=== PATIENT | male | born 1965 | race Caucasian/White ===

== ENCOUNTER 2017-11-10 01:06 | Emergency (ER) | payer OTHER ==
[2017-11-10] MEDS ORDERED: LISI-374 PO (01:14)
[2017-11-10] MEDS ORDERED: ASPI-1471 PO (01:15)
[2017-11-10] MEDS ORDERED: ATOR20TA22 PO (01:15)
[2017-11-10] MEDS ORDERED: OMEP-218 PO (01:15)
--- NOTE | 2017-11-10 01:27 | ER Report ---
History and Physical Time Seen By MD: 01:27 Hx. of Stated Complaint: BLOODY NOSE ON LEFT NOSTRIL HPI/ROS CHIEF COMPLAINT: nosebleed HISTORY OF PRESENT ILLNESS: This is a 52 year old male. He is having epistaxis today. this is the 4th episode today. left nasal passage. has had prior problems like this. He is visiting town from [place] and will be returning there in a few days. He has high blood pressure and has not been taking his lisinopril regularly, but did take it yesterday. No other bleeding or bruising. Does not want packing as he has had that in the past and is very uncomfortable. Hoping we can do some cautery. Allergies: Coded Allergies: No Known Drug Allergies (Unverified , 11/10/17) Home Meds Reported Medications Omeprazole Magnesium (PRILOSEC OTC) 20 Mg Tablet., 1 TAB PO QDAY, TAB 11/10/17 Aspirin (ASPIR 81) 81 Mg Tablet.dr, 81 MG PO QDAY, TAB 11/10/17 Atorvastatin Calcium (LIPITOR) 20 Mg Tablet, 1 TAB PO QDAY, TAB 11/10/17 Lisinopril (LISINOPRIL) 40 Mg Tablet, 40 MG PO QDAY, TAB 11/10/17 Reviewed Nurses Notes: Yes Hx Substance Use Disorder: No Hx Alcohol Use: No Constitutional Vital Sign - Last 24 Hours 11/10/17 11/10/17 11/10/17 11/10/17 01:11 01:12 01:30 02:00 Temp 97.5 Pulse 106 Resp 16 B/P (MAP) 125/101 (109) 125/101 105/77 (86) 101/72 (82) Pulse Ox 93 O2 Delivery Room Air 11/10/17 11/10/17 11/10/17 11/10/17 02:06 02:11 02:26 02:41 Pulse 89 87 88 91 Pulse Ox 93 91 91 91 Physical Exam General Appearance: Alert, no distress. Eyes: Pupils equal and round no pallor or injection. ENT: Mucous membranes are moist. Oral mucosa is normal in appearance. Posterior oropharynx with blood draining post-nasal. Nasal mucosa with bleeding mid-septum on the left. Skin: Warm and dry, no rashes. DIFFERENTIAL DIAGNOSIS: After history and physical exam differential diagnosis was considered for nosebleed, initial blood pressure elevated but repeat blood pressures look good. Appears to be bleeding from the left nasal passage, mid septum. Medical Decision Making Data Points Result Diagram: 11/10/17 0208 11/10/17 0208 Laboratory Hematology Test 11/10/17 02:08 Red Blood Count 4.58 M/uL (4.00-5.60) Mean Corpuscular Volume 82.9 fL (80.0-96.0) Mean Corpuscular Hemoglobin 29.0 pg (26.0-33.0) Mean Corpuscular Hemoglobin Concent 35.0 g/dL (32.0-36.0) Red Cell Distribution Width 14.5 % (11.5-14.5) Mean Platelet Volume 7.2 fL (7.2-11.1) Neutrophils (%) (Auto) 64.3 % (39.4-72.5) Lymphocytes (%) (Auto) 27.2 % (17.6-49.6) Monocytes (%) (Auto) 6.4 % (4.1-12.4) Eosinophils (%) (Auto) 1.2 % (0.4-6.7) Basophils (%) (Auto) 0.9 % (0.3-1.4) Nucleated RBC Relative Count (auto) 0.0 /100WBC Neutrophils # (Auto) 5.5 K/uL (2.0-7.4) Lymphocytes # (Auto) 2.3 K/uL (1.3-3.6) Monocytes # (Auto) 0.5 K/uL (0.3-1.0) Eosinophils # (Auto) 0.1 K/uL (0.0-0.5) Basophils # (Auto) 0.1 K/uL (0.0-0.1) Nucleated RBC Absolute Count (auto) 0.00 K/uL Prothrombin Time 13.2 seconds (12.0-14.4) Prothromb Time International Ratio 1.00 Activated Partial Thromboplast Time 22 seconds (23-35) Sodium Level 139 mmol/L (137-145) Potassium Level 3.6 mmol/L (3.5-5.0) Chloride Level 103 mmol/L (98-107) Carbon Dioxide Level 27 mmol/L (22-30) Blood Urea Nitrogen 25 mg/dl (9-21) Creatinine 1.20 mg/dl (0.66-1.25) Glomerular Filtration Rate Calc > 60.0 Random Glucose 106 mg/dl (75-110) Calcium Level 9.6 mg/dl (8.4-10.2) Total Bilirubin 0.3 mg/dl (0.2-1.3) Aspartate Amino Transf (AST/SGOT) 27 U/L (0-35) Alanine Aminotransferase (ALT/SGPT) 26 U/L (0-56) Alkaline Phosphatase 52 U/L (0-126) Total Protein 7.0 g/dl (6.3-8.2) Albumin 4.2 g/dl (3.5-5.0) Chemistry Test 11/10/17 02:08 White Blood Count 8.5 k/uL (4.5-11.0) Red Blood Count 4.58 M/uL (4.00-5.60) Hemoglobin 13.3 g/dL (14.0-18.0) Hematocrit 38.0 % (42.0-52.0) Mean Corpuscular Volume 82.9 fL (80.0-96.0) Mean Corpuscular Hemoglobin 29.0 pg (26.0-33.0) Mean Corpuscular Hemoglobin Concent 35.0 g/dL (32.0-36.0) Red Cell Distribution Width 14.5 % (11.5-14.5) Platelet Count 305 K/uL (150-450) Mean Platelet Volume 7.2 fL (7.2-11.1) Neutrophils (%) (Auto) 64.3 % (39.4-72.5) Lymphocytes (%) (Auto) 27.2 % (17.6-49.6) Monocytes (%) (Auto) 6.4 % (4.1-12.4) Eosinophils (%) (Auto) 1.2 % (0.4-6.7) Basophils (%) (Auto) 0.9 % (0.3-1.4) Nucleated RBC Relative Count (auto) 0.0 /100WBC Neutrophils # (Auto) 5.5 K/uL (2.0-7.4) Lymphocytes # (Auto) 2.3 K/uL (1.3-3.6) Monocytes # (Auto) 0.5 K/uL (0.3-1.0) Eosinophils # (Auto) 0.1 K/uL (0.0-0.5) Basophils # (Auto) 0.1 K/uL (0.0-0.1) Nucleated RBC Absolute Count (auto) 0.00 K/uL Prothrombin Time 13.2 seconds (12.0-14.4) Prothromb Time International Ratio 1.00 Activated Partial Thromboplast Time 22 seconds (23-35) Glomerular Filtration Rate Calc > 60.0 Calcium Level 9.6 mg/dl (8.4-10.2) Total Bilirubin 0.3 mg/dl (0.2-1.3) Aspartate Amino Transf (AST/SGOT) 27 U/L (0-35) Alanine Aminotransferase (ALT/SGPT) 26 U/L (0-56) Alkaline Phosphatase 52 U/L (0-126) Total Protein 7.0 g/dl (6.3-8.2) Albumin 4.2 g/dl (3.5-5.0) Coagulation Test 11/10/17 02:08 Prothrombin Time 13.2 seconds Prothromb Time International Ratio 1.00 Activated Partial Thromboplast Time 22 seconds ED Course/Re-evaluation ED Course Procedure: Epistaxis control. Initially treated with compression with a nasal clamp. The patient had continued bleeding. We then used Neosynephrine nasal spray to try and acheive some vasoconstriction to slow or stop the bleeding. We also used some atomized 1% lidocaine with epinephrine, 0.5cc in the nasal passage. Also used 500 mg of TXA on cotton in the nose. The nose was re-clamped and we waited to re-evaluate. Re- evaluation revealed slowing of the bleeding. The was identified and was on the anterior nasal septum. Cautery was attempted with silver nitrate. Following the procedure the patient was re-examined and the bleeding was well controlled. The patient tolerated the procedure well. The procedure was performed by myself. Decision to Disposition Date: Nov 10, 2017 Decision to Disposition Time: 03:33 Depart Departure Latest Vital Signs Vital Signs Date Time Temp Pulse Resp B/P (MAP) Pulse Ox O2 Delivery O2 Flow Rate FiO2 11/10/17 02:41 91 91 11/10/17 02:00 101/72 (82) 11/10/17 01:12 97.5 16 Room Air Impression: Primary Impression: Nosebleed Condition: Improved Disposition: HOME OR SELF-CARE Patient Instructions: Nosebleed (ED) Additional Instructions: Avoid manipulation of the nose for the next 24-48 hours (rubbing, blowing, picking, etc.) Hold direct pressure if bleeding reoccurs and check into an urgent care or ER if no stopping. Follow-up with your doctor upon returning home. Make sure to take you blood pressure medicine daily as well. To prevent the nose from drying out from the dry air here, you can use a humidifier. You can also use some vaseline or antibiotic ointment in the nose to cover the inner surface. YUN OLIVARES MD Nov 10, 2017 01:27
[2017-11-10] MEDS ORDERED: TRANEXAMIC AC 1000 MG/10ML SDV ONE (01:35)
[2017-11-10] MEDS ORDERED: ENT KIT ONE (01:35)
[2017-11-10 02:00] VITALS: BP 101/72
[2017-11-10 02:19] LABS: PLATELET COUNT, AUTOMATED 305 K/uL (150-450)
[2017-11-10] MEDS ORDERED: PHENYLEPHRINE 0.5% 15 ML BTL ONE (04:23)
== END 2017-11-10 04:04 | disposition home or self-care (01) ==
LOC: ER 01:43
DX: R04.0 Epistaxis (principal)
CPT/HCPCS: 30903; 82040; 82247; 82310; 82374; 82435; 82565; 82947; 84075; 84132; 84155; 84295; 84450; 84460; 84520; 85025; 85610; 85730; 99282